=== PATIENT | female | born 1990 | race African-American/Black ===

== ENCOUNTER 2024-03-22 01:48 | Emergency (ER) | payer OTHER ==
[~2024-03-22] VITALS: Ht 157.5 cm; Wt 72.0 kg
[~2024-03-22 01:48] MED LIST: AMOX1TAB16 PO; ATOR20TA PO
[2024-03-22 01:53] VITALS: TEMP 98.8; O2SAT 97
[2024-03-22] MEDS: HALOPERIDOL LACTATE 5MG/ML VIAL IM ONE (03:16)
[2024-03-22 03:51] VITALS: BP 141/74; PULSE 110; RESP 16; O2SAT 100
== END 2024-03-22 04:18 | disposition home or self-care (01) ==
LOC: ER 01:55
DX: F20.9 Schizophrenia, unspecified (principal); E11.9 Type 2 diabetes mellitus without complications; J45.909 Unspecified asthma, uncomplicated; Z79.899 Other long term (current) drug therapy
CPT/HCPCS: 99283; 96372; J1630; 99284